=== PATIENT | female | born 1950 | race Caucasian/White ===

== ENCOUNTER 2024-12-31 10:32 | Outpatient (CLI) | payer MEDICARE, OTHER ==
[2024-12-31] MEDS ORDERED: Iopamidol 300 61% 100 ML VIAL FS ONE (13:50)
== END 2024-12-31 10:33 | disposition home or self-care (01) ==
LOC: CSHCT 10:32
PROVIDERS: ATTEND Internal Medicine
DX: R59.0 Localized enlarged lymph nodes (principal); I26.99 Other pulmonary embolism without acute cor pulmonale; I82.91 Chronic embolism and thrombosis of unspecified vein; K86.2 Cyst of pancreas; M79.9 Soft tissue disorder, unspecified
CPT/HCPCS: 71275